=== PATIENT | male | born 2000 | race American Indian/Alaskan Native ===

== ENCOUNTER 2021-03-06 17:44 | Emergency (ER) | payer SELFPAY ==
[2021-03-06 18:24] VITALS: BP 126/83
[2021-03-06] MEDS ORDERED: NEOMY 3.5 MG/BACIT 400 UNITS/POLY B 5000 UNITS/GM OINT PACKET TP ONE ×2 (18:26→21:01)
[2021-03-06] MEDS ORDERED: TETANUS,DIPH,PERTUSS(ACELL) VACCINE 0.5 ML SYRINGE IM ONE ×2 (18:26→21:30)
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
== END 2021-03-06 21:30 | disposition home or self-care (01) ==
LOC: ED 17:44
DX: S70.01XA Contusion of right hip, initial encounter (principal); S40.012A Contusion of left shoulder, initial encounter; S60.512A Abrasion of left hand, initial encounter; V49.49XA Driver injured in collision with other motor vehicles in traffic accident, initial encounter; Y92.410 Unspecified street and highway as the place of occurrence of the external cause; Y93.89 Activity, other specified; Y99.8 Other external cause status
CPT/HCPCS: 73030; 73130; 73502; 73630; 90471; 90715; 99283; A6250